=== PATIENT | female | born 1980 | race Asian ===

== ENCOUNTER 2019-05-06 12:09 | Inpatient (IN) | payer OTHER ==
[~2019-05-06] VITALS: Ht 165.1 cm; Wt 70.5 kg
[2019-05-06] MEDS ORDERED: PRENTAB9 PO (12:21)
[2019-05-06] MEDS ORDERED: ONDANSETRON 4MG/2ML VIAL (J2405) IV ONE (13:15)
[2019-05-06] MEDS ORDERED: MORPHINE 4 MG/ML 1ML VIAL/SYRINGE (J2270) IV ONE (13:15)
[2019-05-06 13:41] LABS: BASO % 0.1 % (0.0-1.0); EOS % 0.3 % (0.0-3.0); HEMATOCRIT 40.7 % (36.0-47.0); HEMOGLOBIN 12.8 g/dl (12.0-15.5); LYMPH # 1.1 10^3/uL (1.5-5.0); LYMPH % 15.9 % (24.0-44.0); MEAN CORPUSCULAR HEMOGLOBIN 28.2 pg (27.0-33.0); MEAN CORPUSCULAR HGB CONC 31.4 g/dl (32.0-36.5); MEAN CORPUSCULAR VOLUME 89.6 fl (80.0-96.0); MONO # 0.2 10^3/uL (0.0-0.8); MONO % 3.4 % (0.0-5.0); NEUTROPHILS # 5.4 10^3/uL (1.5-8.5); NEUTROPHILS % 79.7 % (36.0-66.0); PLATELET COUNT, AUTOMATED 184 10^3/uL (150-450); RED BLOOD COUNT 4.54 10^6/uL (4.00-5.40); WHITE BLOOD COUNT 6.8 10^3/uL (4.0-10.0)
--- NOTE | 2019-05-06 13:49 | REP ---
RIGHT KNEE SERIES: Four views of the right knee are performed. There is a fracture of the patella at the level of the lower third, with displacement of the superior fragment superiorly and the inferior fragment inferiorly. There is fluid and edema between the fracture fragments. No other fracture or dislocation is seen. Electronically Signed by Preston Boyle MD 05/06/2019 04:24 P
[2019-05-06 14:04] LABS: BLOOD UREA NITROGEN 18 MG/DL (7-18); CALCIUM LEVEL 9.1 MG/DL (8.5-10.1); CARBON DIOXIDE LEVEL 28 MEQ/L (21-32); CHLORIDE LEVEL 104 MEQ/L (98-107); CREATININE FOR GFR 0.55 MG/DL (0.55-1.30); GLOMERULAR FILTRATION RATE > 60.0 (>60); GLUCOSE, FASTING 107 MG/DL (70-100); POTASSIUM SERUM 3.9 MEQ/L (3.5-5.1); SODIUM LEVEL 139 MEQ/L (136-145)
[2019-05-06 16:00] VITALS: BP 128/77
[2019-05-06] MEDS: NS 1,000 ML IV SCH (16:54)
[2019-05-06] MEDS ORDERED: MORPHINE 2 MG/ML 1ML VIAL (J2270) IV PRN (17:00)
[2019-05-06] MEDS ORDERED: ACETAMINOPHEN TAB 650MG DOSE (2X325MG) PO PRN (17:00)
[2019-05-06] MEDS ORDERED: FLEET ENEMA PR PRN (17:00)
[2019-05-06] MEDS ORDERED: oxyCODONE 5MG TAB PO PRN (17:00)
[2019-05-06 17:42] LABS: HEMATOCRIT 36.2 % (36.0-47.0); MEAN CORPUSCULAR HEMOGLOBIN 29.1 pg (27.0-33.0); MEAN CORPUSCULAR HGB CONC 33.1 g/dl (32.0-36.5); MEAN CORPUSCULAR VOLUME 87.7 fl (80.0-96.0); PLATELET COUNT, AUTOMATED 180 10^3/uL (150-450); RED BLOOD COUNT 4.13 10^6/uL (4.00-5.40); WHITE BLOOD COUNT 9.4 10^3/uL (4.0-10.0)
[2019-05-06 17:55] LABS: INR 1.03; PROTHROMBIN TIME 13.2 SECONDS (11.8-14.0)
--- NOTE | 2019-05-06 19:16 | HPE ---
DATE OF ADMISSION: 05/06/2019 CHIEF COMPLAINT: Right knee pain. The patient presents today after she had a slip and fall while walking outside with her son's sled. She immediately appreciated sharp pain and deformity to the anterior knee. She was made worse with any sort of weight bearing. It was 10 out of 10 and alleviated only with rest and pain medications. She denies any pain elsewhere. She denies any fevers, chills, nausea or vomiting. PAST MEDICAL HISTORY: None. MEDICATIONS: She does not take any medications other than vitamins. PAST SURGICAL HISTORY: section. ALLERGIES: No known drug allergies. SOCIAL HISTORY: She lives at home with her and her son. Denies any illicit drugs or alcohol use. REVIEW OF SYSTEMS: Complete 10-system review was conducted and pertinent positives and negatives in the history of present illness. Other systems negative. PHYSICAL EXAMINATION: The patient is awake, alert, oriented, well dressed, appropriate affect, breathing unlabored on room air. Normocephalic, atraumatic. Bilateral upper extremities with no tenderness to palpation. Full active range of motion of the fingers, wrists and elbows without any pain or discomfort. Skin intact. Radial pulse 2+ and regular rate. Sensation intact to light touch. Sensation intact to light touch in superficial sensory branch, radial nerve, median nerve and ulnar nerve. Positive AIN, PIN, and ulnar motor nerve function. Left lower extremity with no tenderness to palpation. Full active range of motion of the knee, hip and ankle. Positive EHL, FHL, tibialis, and gastroc motor function. Sensation intact to light touch in superficial, peroneal, deep peroneal, sural, saphenous, and tibial distributions. Posterior tibial pulse is 2+, regular rate. Skin intact. Right knee with significant swelling and deformity to the right knee. Tender to palpation globally about the knee. Positive EHL, FHL, tibialis, and gastroc motor function. Sensation intact to light touch in superficial, peroneal, deep peroneal, sural, saphenous, and tibial distributions. Imaging reviewed and demonstrated a displaced patellar fracture. DIAGNOSIS: 1. Right patellar fracture. PLAN: I discussed with the patient that she suffered a right patellar fracture and unfortunately this disrupts her extensor mechanism and in order to repair she does require surgical intervention. We discussed open reduction, internal fixation (ORIF) of the right patella. The patient expressed understanding and agreement with the plan. We discussed the risks and benefits, including, but not limited to infection, damage to surrounding structures, malunion, nonunion, incomplete relief. The patient expressed understanding and wished to proceed. In the meantime, the patient will be weightbearing as tolerated only in a knee immobilizer. Otherwise, bed rest. We will work on pain control and she should elevate the leg as much as possible. She will be regular diet right now and nothing by mouth at midnight for plans for surgery tomorrow around 1:00 or 2:00 p.m. The patient expressed understanding and agreement with this plan.
[2019-05-06 22:08] VITALS: BP_SYST 137; BP_SYST 237; BP_DIAS 75
[2019-05-07] VITALS (7 sets, daily range): BP systolic 118–125; BP diastolic 73–81
[2019-05-07] MEDS: NS 1,000 ML IV SCH ×4 (02:02→20:00)
[2019-05-07] MEDS ORDERED: ceFAZolin SOD 2 GM in IV 1 EA IV SCH (06:00)
[2019-05-07] MEDS ORDERED: MIDAZOLAM INJ 2 MG/2 ML VIAL (J2250) As Ordered ONE (12:55)
[2019-05-07] MEDS ORDERED: LIDOCAINE 2% INJ 100 MG/5 ML SDV (FOR ANES.) As Ordered ONE (12:55)
[2019-05-07] MEDS ORDERED: ONDANSETRON 4MG/2ML VIAL (J2405) As Ordered ONE (12:55)
[2019-05-07] MEDS ORDERED: dexameTHASONE 4 MG/ML 1ML VIAL (J1100) As Ordered ONE (12:55)
[2019-05-07] MEDS ORDERED: fentaNYL 100 MCG/2 ML INJECTION (J3010) As Ordered ONE ×2 (12:55→14:29)
[2019-05-07] MEDS ORDERED: PROPOFOL 200 MG/20 ML VIAL As Ordered ONE (12:55)
[2019-05-07] MEDS ORDERED: ROCURONIUM BROMIDE 50 MG/5 ML VIAL As Ordered ONE (13:39)
[2019-05-07] MEDS ORDERED: ceFAZolin 1GM INJ (J0690 PER 500MG) As Ordered ONE (14:39)
[2019-05-07] MEDS ORDERED: GLYCOPYRROLATE INJ 0.2 MG/ML 2 ML VIAL As Ordered ONE (14:49)
[2019-05-07] MEDS ORDERED: ACETAMINOPHEN 1000MG 100ML IV BTL (OFIRMEV) (J0131 PER 10MG) As Ordered ONE (14:50)
[2019-05-07] MEDS ORDERED: MORPHINE 10 MG/ML 1ML VIAL (J2270) As Ordered ONE (14:52)
[2019-05-07] MEDS ORDERED: BUPIVACAINE/EPIN 0.25% 30 ML VIAL As Ordered ONE ×2 (15:54→15:55)
[2019-05-07] MEDS ORDERED: LR 1,000 ML IV SCH (16:45)
[2019-05-07] MEDS ORDERED: ONDANSETRON 4MG/2ML VIAL (J2405) IV PRN (16:45)
[2019-05-07] MEDS ORDERED: fentaNYL 100 MCG/2 ML INJECTION (J3010) IV PRN (16:45)
[2019-05-07] MEDS ORDERED: HYDROMORPHONE HCL 0.5 MG/ 0.5 ML SYRINGE (J1170 PER 1) IV PRN (16:45)
[2019-05-07] MEDS ORDERED: PERCOCET 5MG/325MG TAB PO PRN (16:45)
[2019-05-07] MEDS: oxyCODONE 5MG TAB PO PRN (18:12)
[2019-05-07] MEDS ORDERED: ONDANSETRON 4MG/2ML VIAL (J2405) IV ONE (19:00)
[2019-05-07] MEDS: ceFAZolin SOD 1 GM in D5W MINI-BAG PLUS 50 ML IV SCH (19:59)
[2019-05-07] MEDS: ONDANSETRON 4 MG TAB (S0181) PO PRN (22:54)
[2019-05-08 02:00] VITALS: BP 120/75
[2019-05-08] MEDS: ONDANSETRON 4 MG TAB (S0181) PO PRN ×2 (02:49→08:50)
[2019-05-08] MEDS: oxyCODONE 5MG TAB PO PRN ×2 (02:50→08:51)
[2019-05-08] MEDS: NS 1,000 ML IV SCH (02:50)
[2019-05-08] MEDS: ceFAZolin SOD 1 GM in D5W MINI-BAG PLUS 50 ML IV SCH ×2 (04:16→11:02)
[2019-05-08] MEDS ORDERED: OXYC-517 PO (05:55)
[2019-05-08] MEDS ORDERED: ASPI81CH33 PO (05:55)
[2019-05-08 06:00] VITALS: BP 115/69
[2019-05-08] MEDS ORDERED: ASPI-1 PO (08:13)
[2019-05-08] MEDS ORDERED: ASPIRIN 81 MG ENTERIC TAB PO SCH (09:00)
--- NOTE | 2019-05-08 12:07 | RO ---
DATE OF PROCEDURE: 05/07/2019 PREPROCEDURE DIAGNOSIS: Right patellar fracture. POSTPROCEDURE DIAGNOSIS: Right patellar fracture. PROCEDURE: Right partial patellectomy with metallic pin and advancement and repair. SURGEON: Dr. Pavel Mart. FILM COMPOSER: Francois David PA-C, who was essential for each portion with retraction of the procedure. ANESTHESIA: General. COMPLICATIONS: None. INDICATION: This is a pleasant 38-year-old female who suffered a slip and fall and suffered a displaced patellar fracture. We discussed in order to restore her extensor mechanism, this needed to be repaired. We discussed the risks and benefits including but not limited to infection, damage to surrounding structures and completely relieve, need for further surgery. PREOPERATIVE ANTIBIOTICS: 2 grams of Ancef. COMPLICATIONS: None. DESCRIPTION OF PROCEDURE: Patient was brought back to the operating room in supine position and underwent general anesthesia. We then prepped and draped the right leg in the usual fashion. We then had time-out confirming site and side of surgery. Once all on agreement we made a longitudinal incision from 2-3 cm proximal to the proximal pole of the patella to the tubercle. We sharply dissected through subcutaneous tissue encountering significant hematoma. Once we carefully dissected through and visualized the two fracture fragments along with the tear in the retinaculum we irrigated the fracture site and cleaned out the fracture plane using 13 blade curets and suction. We then reduced the fracture under x-ray visualization. I used the two [id number] clamps. The fracture plane itself was at about a 60-degree angle making more of a shear fracture than a true transverse fracture. Therefore, we attempted to us a 2.7 lag screw. This worked quite well. Then to reinforce this, we did do two 4.0 cannulated screws through the two fracture fragments. However, when we were inserted one of the 4.0 cannulated screws, the distal pole started to break apart. At this point, is when we decided to change plans due to the comminution now of the distal pole and also the smaller portion of articular cartilage that was actually attached to it, we decided to excise this portion. Once this was done, we removed the hardware that was already in. Excised the distal pole of the patella. We then whip-stitched the patella tendon with #5-0 FiberWire creating four strands. Drilled three holes transversely longitudinally through the patella towards the quadriceps tendon and used suture passer to pass the limbs through. We then tied them down tightly over top the superior portion of the patella. Once this was done, we were able to flex the knee to 110 degrees without gaping of the patella tendon. We were very happy with this. We then used 0 Vicryl to repair the retinaculum, both overtop of the repair and along the medial and lateral aspects. We then irrigated the wound thoroughly and prior to the retinacular closure, we irrigated the joints as well to remove any loose bodies. We then closed the skin with subcutaneous stitches of #2-0 Vicryl and debra for the skin. We placed Adaptic gauze, sterile Kerlix and HEMALATHA bandage over the dressing. We then placed the patient in a knee immobilizer. Patient was awakened from anesthesia. Tourniquet was let down at approximately 80 minutes and taken stably to the postanesthesia care unit (PACU). POSTOPERATIVE PLAN: Patient will be able to weight-bear as tolerated in the knee immobilizer. She will her knee immobilizer at all times. We will start progressing her in the office at the 2-week appointment with the hinge knee brace. Patient will be given deep venous thrombosis (DVT) prophylaxis to be sent home with and placed on surgical care improvement project (SCIP) prophylaxis and likely be discharged home postop day 1.
--- NOTE | 2019-05-23 14:52 | DSES ---
DATE OF ADMISSION: 05/06/2019 DATE OF DISCHARGE: 05/08/2019 ATTENDING PHYSICIAN: Dr. Pavel Mart ADMISSION DIAGNOSIS: Right patella fracture. OTHER DIAGNOSES: None. DISCHARGE DIAGNOSIS: Right patella fracture status post ORIF (open reduction internal fixation). PROCEDURE PERFORMED: Right patellar ORIF (open reduction internal fixation). HISTORY: The patient presented to the emergency department on 05/06/2019 after a slip and fall while walking outside with sharp pain and deformity. She was found by x-ray to have a displaced patellar fracture and was consented for surgical treatment for her condition. She underwent a right patellar fracture ORIF (open reduction internal fixation) with Dr. Pavel Mart and did well in the postoperative. Her hospital course was without complications. She was up with physical therapy per their protocol and pain was controlled on the day of discharge, she was doing well, and she will resume her preoperative medications and diet along with oral pain medication for pain control. She was given instructions to include but not limited to wound monitoring activity limitations. She will followup in our office in 10-14 days for surgical followup. Please refer to the medical record for further details.
== END 2019-05-08 18:10 | disposition home or self-care (01) | DRG 489 ==
LOC: EDBD 12:09 → M ED 12:09 → M ED INP 14:00 → M MS5PR 15:55
PROVIDERS: ADMIT Orthopaedic Surgery Hand Surgery; ATTEND Orthopaedic Surgery Hand Surgery
PROC: 0QSD04Z Reposition Right Patella with Internal Fixation Device, Open Approach (ICD-10-PCS; 2019-05-07)
PROC: 0QBD0ZZ Excision of Right Patella, Open Approach (ICD-10-PCS; principal; 2019-05-07 13:30)
DX: S82.091A Other fracture of right patella, initial encounter for closed fracture (principal); W18.30XA Fall on same level, unspecified, initial encounter; Y92.009 Unspecified place in unspecified non-institutional (private) residence as the place of occurrence of the external cause

== ENCOUNTER → 2019-09-16 | Outpatient (REF) | payer OTHER ==
[~2019-09-16] MED LIST: ASPI-1 PO; ASPI81CH33 PO; OXYC-517 PO; PRENTAB9 PO
[2019-09-16 13:31] LABS: HEMATOCRIT 39.6 % (36.0-47.0); MEAN CORPUSCULAR HEMOGLOBIN 28.8 pg (27.0-33.0); MEAN CORPUSCULAR HGB CONC 32.8 g/dl (32.0-36.5); MEAN CORPUSCULAR VOLUME 87.6 fl (80.0-96.0); PLATELET COUNT, AUTOMATED 218 10^3/uL (150-450); RED BLOOD COUNT 4.52 10^6/uL (4.00-5.40); WHITE BLOOD COUNT 8.5 10^3/uL (4.0-10.0)
[2019-09-16 19:22] LABS: HCG, SERUM QUANTITATIVE 104536 MIU/ML
[2019-09-17 10:53] LABS: RUBELLA IgG QUALITATIVE IMMUNE (IMMUNE)
[2019-09-17 10:54] LABS: HEPATITIS B SURFACE ANTIGEN NEGATIVE (NEGATIVE)
[2019-09-17 11:22] LABS: HEPATITIS C VIRUS ABY INDEX 0.1 INDEX (<0.8)
[2019-09-17 11:23] LABS: HIV 1&2 SCREEN CENTAUR NEGATIVE (NEGATIVE)
== END ==
LOC: M LAB REF 13:17
PROVIDERS: ATTEND Obstetrics & Gynecology
DX: O36.80X0 Pregnancy with inconclusive fetal viability, not applicable or unspecified (principal)

== ENCOUNTER → 2019-09-26 | Outpatient (CLI) | payer OTHER ==
--- NOTE | 2019-09-26 15:45 | REP ---
FIRST TRIMESTER ULTRASOUND: Real-time sonographic evaluation of the gravid uterus is performed utilizing transabdominal technique. There is a single living intrauterine gestation with an estimated gestational age 8 weeks 3 days based on crown-rump length of 19 mm, EDC 05/04/2020. heart rate 178 beats per minute. There is no subchorionic hemorrhage. No material adnexal region abnormality is seen. Electronically Signed by Preston Boyle MD 09/26/2019 04:03 P
== END ==
LOC: M RAD 12:38
PROVIDERS: ATTEND Obstetrics & Gynecology
DX: O36.80X0 Pregnancy with inconclusive fetal viability, not applicable or unspecified (principal); Z3A.08 8 weeks gestation of pregnancy

== ENCOUNTER → 2019-11-11 | Outpatient (CLI) | payer OTHER ==
--- NOTE | 2019-11-11 11:45 | REP ---
OBSTETRIC SONOGRAPHY: HISTORY: Supervision of . Comparison sonography August 27, 2019. FINDINGS: Scanning through the gravid uterus demonstrates a single living intrauterine gestation in a free-floating lie. heart rate is recorded at 161 beats per minute. No subchorionic hemorrhage is seen. There is a 2.8 cm hypoechoic area along the left posterior wall of the uterus consistent with fibroid. There is a 2.1 cm cystic area in the maternal right ovary consistent with corpus luteum. No other extrauterine finding. BIOMETRY CHART: BPD 2.9 cm = 15 weeks 1 day HC 11.0 cm = 15 weeks 2 days AC 9.2 cm = 15 weeks 2 days FL 1.6 cm = 14 weeks 4 days HL 1.7 cm = 14 weeks 6 days HC/AC ratio normal 1.20 Cephalic index normal 0.71. Estimated weight 112 grams, 0 pounds 3 ounces, 47th percentile 14 weeks 6 days. IMPRESSION: Single living intrauterine gestation at the 15 weeks 0 days by today's composite sonographic criteria. Expected gestational age estimate based on prior sonography is 14 weeks 6 days. MERRILL by prior sonography May 05, 2020.
== END ==
LOC: M WHC 10:14
PROVIDERS: ATTEND Obstetrics & Gynecology
DX: O36.80X0 Pregnancy with inconclusive fetal viability, not applicable or unspecified (principal); Z3A.15 15 weeks gestation of pregnancy

== ENCOUNTER → 2019-12-17 | Outpatient (CLI) | payer OTHER ==
--- NOTE | 2020-02-06 07:54 | REP ---
COMPLETE OBSTETRIC ULTRASOUND CLINICAL: Anatomical assessment. COMPARISON: 11/11/2019. FINDINGS: Ultrasound examination demonstrates a single live intrauterine in variable presentation. motion was identified by the technologist. Placenta noted posteriorly and grade 1 without evidence for placenta previa or abruption. Amniotic fluid volume is within normal limits. Cervix measures 1.7 cm in length and appears closed. Gestational age by current biometrical measurements 20 weeks 0 days with estimated date of delivery 05/05/2020. heart rate 161 beats per minute. Estimated weight 308 grams (30th percentile). Anatomic assessment demonstrates normal cisterna magna, cavum/septum, thalamus, stomach, kidneys/bladder, four chamber heart/ventricular outflow tracts, three- vessel cord/cord insertion, facial features and extremities. Limited evaluation of the spine due to position. IMPRESSION: * Single live intrauterine in variable presentation. * Limited evaluation of the spine due to positioning. Remainder of the anatomical assessment is complete and normal. MTDD
== END ==
LOC: M WHC 17:00
PROVIDERS: ATTEND Obstetrics & Gynecology
DX: Z34.82 Encounter for supervision of other normal pregnancy, second trimester (principal); Z3A.20 20 weeks gestation of pregnancy

== ENCOUNTER → 2020-02-05 | Outpatient (CLI) | payer OTHER ==
[2020-02-05 13:17] LABS: HEMATOCRIT 34.9 % (36.0-47.0); HEMOGLOBIN 11.4 g/dl (12.0-15.5); MEAN CORPUSCULAR HGB CONC 32.7 g/dl (32.0-36.5); MEAN CORPUSCULAR VOLUME 91.8 fl (80.0-96.0); PLATELET COUNT, AUTOMATED 185 10^3/uL (150-450); WHITE BLOOD COUNT 11.1 10^3/uL (4.0-10.0)
== END ==
LOC: M LAB 11:19
PROVIDERS: ATTEND Obstetrics & Gynecology
DX: Z34.82 Encounter for supervision of other normal pregnancy, second trimester (principal); Z3A.00 Weeks of gestation of pregnancy not specified

== ENCOUNTER → 2020-02-12 | Outpatient (CLI) | payer OTHER ==
--- NOTE | 2020-02-18 08:26 | REP ---
FOLLOW UP OBSTETRICAL ULTRASOUND: COMPARISON: 12/17/19 FINDINGS: Ultrasound examination demonstrates a single live intrauterine in cephalic presentation. Placenta noted posteriorly and grade 2 without placenta previa or abruption. Amniotic fluid volume is normal. The cervix measures 4 cm in length and appears closed. Gestational age by LMP is 28 weeks 1 day with estimated date of delivery of 05/05/20. heart rate is 155 beats per minute. RADHA is 16.0 cm. HC/AC ratio is 1.06. Estimated weight by current biometrical measurements is 1373 grams (66th percentile). Anatomical assessment demonstrates normal structures including the spine. IMPRESSION: Single live intrauterine demonstrating appropriate interval growth. In conjunction with prior examination, anatomical assessment is complete and normal. MTDD
== END ==
LOC: M WHC 14:55
PROVIDERS: ATTEND Obstetrics & Gynecology
DX: Z34.83 Encounter for supervision of other normal pregnancy, third trimester (principal); Z3A.28 28 weeks gestation of pregnancy

== ENCOUNTER → 2020-03-30 | Outpatient (REF) | payer OTHER | LOC: M LAB REF 16:07 | PROVIDERS: ATTEND Obstetrics & Gynecology | DX: Z34.83 Encounter for supervision of other normal pregnancy, third trimester (principal) ==

== ENCOUNTER → 2020-04-09 | Outpatient (CLI) | payer OTHER ==
--- NOTE | 2020-04-09 17:14 | REP ---
INDICATION: RADHA/EFW COMPARISON: 02/12/2020 TECHNIQUE: Transabdominal obstetrical ultrasound with color Doppler evaluation. FINDINGS: Examination demonstrates a single live intrauterine in cephalic presentation. motion is identified by technologist. Placenta is noted posterior and grade 2 without evidence for placenta previa or abruption. Amniotic fluid volume is normal. Cervix measures 3.8 cm in length and appears closed.. Gestational age by LMP 36 weeks 2 days with MERRILL 05/05/2020. Gestational age by current measurements 37 weeks 3 days with MERRILL 04/27/2020. FHR equals 153 beats per minute. RADHA: 18.2 cm Estimated weight by current biometric measurements 3312 grams (88thpercentile). IMPRESSION: Single live advanced gestation in cephalic presentation demonstrating appropriate estimated weight and amniotic fluid index. <Electronically signed by Kevin Wesley > 04/09/20 3021
== END ==
LOC: M WHC 09:12
PROVIDERS: ATTEND Obstetrics & Gynecology
DX: O09.523 Supervision of elderly multigravida, third trimester (principal); Z36.88 Encounter for antenatal screening for fetal macrosomia; Z3A.36 36 weeks gestation of pregnancy